=== PATIENT | female | born 1995 | race Caucasian/White ===

== ENCOUNTER 2016-11-22 16:33 | Emergency (ER) | payer OTHER ==
[~2016-11-22] VITALS: Ht 157.5 cm; Wt 79.4 kg
[2016-11-22] MEDS ORDERED: HUMA100I3 SC (16:41)
[2016-11-22] MEDS ORDERED: ZANT1TAB PO (16:41)
[2016-11-22] MEDS ORDERED: NS 1,000 ML IV ONE (17:15)
[2016-11-22 17:23] LABS: BASO % 0.2 % (0.0-1.0); EOS # 0.1 K/mm3 (0.0-0.50); LARGE UNSTAINED CELL # 0.1 K/mm3 (0.0-0.4); LARGE UNSTAINED CELL % 0.8 % (0.0-4.0); LYMPH # 1.4 K/mm3 (1.5-6.5); LYMPH % 14.3 % (24.0-44.0); MEAN CORPUSCULAR HEMOGLOBIN 28.9 pg (27.0-33.0); MEAN CORPUSCULAR VOLUME 85.1 fl (80.0-96.0); MONO # 0.3 K/mm3 (0.0-0.8); MONO % 3.2 % (0.0-5.0); NEUTROPHILS # 7.9 K/mm3 (1.8-7.7); NEUTROPHILS % 80.5 % (36.0-66.0); PLATELET COUNT, AUTOMATED 263 k/mm3 (150-450); RED CELL DISTRIBUTION WIDTH 13.7 % (11.5-14.5); WHITE BLOOD COUNT 9.8 K/mm3 (4.0-10.0)
--- NOTE | 2016-11-22 18:00 | REPUSA ---
CLINICAL HISTORY: Vaginal bleeding. TECHNIQUE: Realtime sonographic images were obtained in multiple projections via transabdominal appr [facility]. COMMENTS: A single live intrauterine is identified with crown/rump length of 4.6 cm which corresponds to the mean estimated gestational age of 11 weeks 3 days. heart motion is present, 182 beats per minute. No subchorionic hemorrhage was identified. Evaluation of the maternal adnexal and cul-de-sac regions revealed no abnormalities. Based on today' s examination, the estimated date of delivery is 06/10/2017. IMPRESSION: A single, live intrauterine with estimated gestational age is 11 weeks 3 days. Although a complete anatomical survey is not possible at this gestational age, no gross anomali es were identified. A repeat scan at 19-20 weeks for a detailed anatomical survey is recommended. Thank you for your kind referral of this patient. We appreciate the opportunity to participate in th is patient's care.
[2016-11-22 18:09] LABS: ALKALINE PHOSPHATASE 68 U/L (45-117); ALT/SGPT 28 U/L (12-78); ANION GAP 7 MEQ/L (8-16); AST/SGOT 13 U/L (15-37); BILIRUBIN,TOTAL 0.3 MG/DL (0.2-1.0); CARBON DIOXIDE LEVEL 26 MEQ/L (21-32); CHLORIDE LEVEL 105 MEQ/L (98-107); POTASSIUM SERUM 4.2 MEQ/L (3.5-5.1); SODIUM LEVEL 138 MEQ/L (136-145)
[2016-11-22 18:10] LABS: ALBUMIN 3.8 GM/DL (3.2-5.2); ALBUMIN/GLOBULIN RATIO 1.19 (1.00-1.93); HCG, SERUM QUANTITATIVE 106039 MIU/ML
[2016-11-22 18:33] LABS: BLOOD UREA NITROGEN 7 MG/DL (7-18); CREATININE FOR GFR 0.63 MG/DL (0.55-1.02); GLOMERULAR FILTRATION RATE > 60.0 (>60); GLUCOSE, FASTING 208 MG/DL (70-105)
[2016-11-22 19:19] VITALS: BP 126/70
== END 2016-11-22 19:21 | disposition home or self-care (01) ==
LOC: M ED 17:41
DX: O26.852 Spotting complicating pregnancy, second trimester (principal); Z3A.11 11 weeks gestation of pregnancy; Z91.040 Latex allergy status; Z88.0 Allergy status to penicillin; Z79.899 Other long term (current) drug therapy

== ENCOUNTER → 2016-12-03 | Outpatient (CLI) | payer OTHER ==
[~2016-12-03] MED LIST: HUMA100I3 SC; ZANT1TAB PO
--- NOTE | 2016-12-03 22:37 | ECGEPIP ---
Stationary ECG Study [facility] Test Date: 2016-12-03 Pat Name: GLENIS CASTORENA Department: Room: - Gender: F Block Hacker: BALS : [id number] Requested By: ADIA Jovel Order Number: [id number] Reading MD: Merlin Tanner Measurements Intervals [place] Rate: 70 P: 38 UT: 191 QRS: 39 QRSD: 86 T: 30 QT: 372 QTc: 402 Interpretive Statements Normal sinus rhythm Nonspecific T-wave abnormalities Comparison tracing not available Electronically Signed On 12-03-2016 22:37:25 EDT by Merlin Tanner
== END ==
LOC: M EKG 15:04
PROVIDERS: ATTEND Obstetrics & Gynecology
DX: O24.011 Pre-existing type 1 diabetes mellitus, in pregnancy, first trimester (principal); Z96.41 Presence of insulin pump (external) (internal); Z79.4 Long term (current) use of insulin; Z3A.00 Weeks of gestation of pregnancy not specified